=== PATIENT | female | born 1980 | race Caucasian/White ===

== ENCOUNTER 2017-09-30 23:01 | Emergency (ER) | payer BC ==
[2017-09-30] MEDS ORDERED: Diphtheria,Pertussis(Acell),Tetanus Vaccine 0.5 ML SDV IM ONE (23:14)
--- NOTE | 2017-09-30 23:17 | EDM.PDOC ---
ED HPI GENERAL MEDICAL PROBLEM - General Chief Complaint: General Stated Complaint: laceration Time Seen by Provider: 09/30/17 23:12 Source of Information: Reports: Patient History Limitations: Reports: No Limitations - History of Present Illness INITIAL COMMENTS - FREE TEXT/NARRATIVE: Right index finger laceration due to steel barrel. Tetanus status unknown. No loss of function of finger. Denies other injuries. Right Hand Pain Score (Numeric/FACES): 7 - Related Data Allergies Allergy/AdvReac Type Severity Reaction Status Date / Time gentamicin Allergy Hives Verified 09/30/17 23:10 Home Meds: Home Meds . [No Known Home Meds] 09/30/17 [History] Past Medical History - History Comment History Comment: Unremarkable ED ROS GENERAL - Review of Systems Review Of Systems: ROS reveals no pertinent complaints other than HPI. ED EXAM, GENERAL - Physical Exam Exam: See Below Exam Limited By: No Limitations General Appearance: Alert, WD/WN, No Apparent Distress Head: Atraumatic, Normocephalic Respiratory/Chest: No Respiratory Distress Extremities: Normal Range of Motion, Normal Capillary Refill, Other (lacerated index finger on right. ) Neurological: Alert, Oriented, Normal Cognition Psychiatric: Normal Affect, Normal Mood Skin Exam: Warm, Dry ED GENERAL MEDICAL PROCEDURES - Laceration/Wound Repair Right Finger Lac/wound length in cm: 2 Appearance: Subcutaneous, Linear, Clean Distal NVT: Neuro & Vascular Intact, No Tendon Injury Anesthetic Type: Local Local Anesthesia - Lidocaine (Xylocaine): 1% Plain Local Anesthetic Volume: 2cc Skin Prep: Providone-Iodine (Betadine) Exploration/Debridement/Repair: Wound Explored, In a Bloodless Field, Explored to Base, No Foreign Material Found Closed with: Sutures Suture Size: 4-0 # of Sutures: 4 Suture Type: Nylon, Interrupted Drain Placement: No Sterile Dressing Applied: Nurse Tetanus Status Addressed: Yes Complications: No Course - Vital Signs Last Recorded V/S: Last Vital Signs Temp 37.1 C 09/30/17 23:02 Pulse 84 09/30/17 23:02 Resp 16 09/30/17 23:02 BP 126/82 09/30/17 23:02 Pulse Ox 99 09/30/17 23:02 - Orders/Labs/Meds Orders: Active Orders 24 hr Category Date Time Status Vaccines to be Administered [RC] PER UNIT ROUTINE Care 09/30/17 23:15 Ordered Bacitracin [Bacitracin Oint 1 GM] Med 09/30/17 23:40 Once 1 dose TOP ONETIME ONE Meds: Medications Discontinued Medications Generic Name Dose Route Start Last Admin Trade Name Timothy PRN Reason Stop Dose Admin Diphtheria/Tetanus/Acell Pertussis 0.5 ml 09/30/17 23:14 09/30/17 23:23 Adacel IM 09/30/17 23:15 0.5 ml .ONCE ONE Administration Lidocaine HCl 5 ml 09/30/17 23:15 09/30/17 23:25 Xylocaine-Mpf 1% INJECT 09/30/17 23:16 5 ml ONETIME ONE Administration - Re-Assessments/Exams Free Text/Narrative Re-Assessment/Exam: 09/30/17 23:41 Laceration repaired. Tetanus updated. Precautions and wound care reviewed. Departure - Departure Time of Disposition: 23:42 Disposition: Home, Self-Care 01 Condition: Good Clinical Impression: Finger laceration Qualifiers: Encounter type: initial encounter Finger: index finger Damage to nail status: without damage Foreign body presence: without foreign body Laterality: right Qualified Code(s): S61.210A - Laceration without foreign body of right index finger without damage to nail, initial encounter - Discharge Information Instructions: Stitches, Ola, or Adhesive Wound Closure, [id number] Forms: ED Department Discharge Additional Instructions: Have sutures removed in 10 days. Watch for infection and follow up as needed if you develop any problems. Wound care as discussed. - My Orders Last 24 Hours: My Active Orders 09/30/17 23:15 Vaccines to be Administered [RC] PER UNIT ROUTINE 09/30/17 23:40 Bacitracin [Bacitracin Oint 1 GM] 1 dose TOP ONETIME ONE - Assessment/Plan Last 24 Hours: My Active Orders 09/30/17 23:15 Vaccines to be Administered [RC] PER UNIT ROUTINE 09/30/17 23:40 Bacitracin [Bacitracin Oint 1 GM] 1 dose TOP ONETIME ONE
[2017-09-30] MEDS ORDERED: Bacitracin Oint 1 GM U/D Packet TOP ONE (23:40)
== END 2017-10-01 00:07 | disposition home or self-care (01) ==
LOC: LL.ED 23:01
DX: S61.210A Laceration without foreign body of right index finger without damage to nail, initial encounter (principal); Z23 Encounter for immunization; Z88.1 Allergy status to other antibiotic agents; W26.8XXA Contact with other sharp object(s), not elsewhere classified, initial encounter
CPT/HCPCS: 12001; 90471; 90715; 99282; 99283